=== PATIENT | male | born 1990 | race Caucasian/White ===

== ENCOUNTER → 2021-01-25 | Outpatient (REF) | payer OTHER ==
[2021-01-25 14:29] LABS: SEMEN APPEARANCE OPAQUE (OPAQUE); SEMEN VISCOSITY VISCOUS (LIQUID); SEMEN VOLUME 2.5 ml (2.0-5.0); WBC CONCENTRATION >1 M/ml (<=1 M/ml)
[2021-01-25 14:32] LABS: SPERM CONCENTRATION 19.4 M/ml (>=15.0)
== END ==
LOC: M LAB REF 14:22
PROVIDERS: ATTEND Specialist
DX: N46.9 Male infertility, unspecified (principal)

== ENCOUNTER 2024-05-07 08:49 | Emergency (ER) | payer OTHER ==
[~2024-05-07] VITALS: Ht 177.8 cm; Wt 87.7 kg
[2024-05-07 10:05] VITALS: BP 152/92; TEMP 97.7; O2SAT 98
== END 2024-05-07 10:07 | disposition home or self-care (01) ==
LOC: M ED 08:49
DX: M25.572 Pain in left ankle and joints of left foot (principal)